=== PATIENT | male | born 1995 | race Caucasian/White ===

== ENCOUNTER 2016-07-12 20:25 | Emergency (ER) | payer BC | END 2016-07-12 23:50 | disposition home or self-care (01) | LOC: ER1 20:25 | DX: R42 Dizziness and giddiness (principal) | CPT/HCPCS: 71020; 93005; 99284 ==

== ENCOUNTER → 2016-07-25 | Outpatient (CLI) | payer BC | LOC: KOH-I 08:00 | DX: R51 Headache (principal); R42 Dizziness and giddiness | CPT/HCPCS: 70450 ==

== ENCOUNTER 2020-05-29 22:37 | Emergency (ER) | payer BC ==
[~2020-05-29 22:37] MED LIST: ZOFRAN4 MG PO
[2020-05-29 23:56] LABS: HEMOGLOBIN 17.7 gm/dl (14.0-17.5); RED BLOOD COUNT 5.49 M/UL (4.20-5.50); WHITE BLOOD COUNT 10.9 K/UL (4.5-11.0)
[2020-05-30 00:13] LABS: BUN/CREATININE RATIO 20 (0-10)
[2020-05-30] MEDS ORDERED: BENTYL 20MG TAB20 MG PO (00:20)
[2020-05-30] MEDS ORDERED: ZOFRAN ODT 4 MG4 MG PO (00:20)
[2020-05-30] MEDS ORDERED: LODINE CAP 300300 MG PO (00:20)
== END 2020-05-30 01:10 | disposition home or self-care (01) ==
LOC: ER1 22:37
PROVIDERS: Physician Assistant
DX: R10.84 Generalized abdominal pain (principal); R11.2 Nausea with vomiting, unspecified
CPT/HCPCS: 80053; 81001; 83605; 83690; 85025; 87086; 96374; 96375; 99284; J1885; J2405; Q9967